=== PATIENT | male | born 1960 | race Two or more races ===

== ENCOUNTER 2016-11-11 17:15 | Emergency (ER) | payer SELFPAY ==
[2016-11-11 17:38] VITALS: O2SAT 100
[2016-11-11] MEDS ORDERED: Sodium Chloride 0.9% 1,000 ML IV STA ×2 (17:42→19:29)
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
[2016-11-11 18:26] LABS: BASO # 0.1 K/uL (0.0-0.2); BASO % 0.7 % (0.0-2.0); HEMATOCRIT 44.2 % (35.0-51.0); LYMPH % 4.9 % (20.0-40.0); MEAN CELL VOLUME 92.8 fl (80.0-94.0); MEAN CORPUSCULAR HEMOGLOBIN 30.2 pg (27.0-31.0); MEAN CORPUSCULAR HGB CONC 32.6 g/dL (33.0-37.0); MEAN PLATELET VOLUME 7.8 fl (7.2-11.7); MONO # 0.7 K/uL (0.0-0.8); MONO % 3.6 % (0.0-10.0); NEUT # 18.5 K/uL (1.8-7.0); NEUT % 90.8 % (50.0-75.0); NRBC % 0.1 % (0.0-0.0); PLATELET COUNT 389 K/uL (130-400); RED CELL DISTRIBUTION WIDTH 13.4 % (11.5-14.5); WHITE BLOOD COUNT 20.4 K/uL (4.8-10.8)
[2016-11-11 18:31] LABS: ALB/GLOB RATIO 1.6 (1.0-2.1); ALCOHOL SERUM < 10 mg/dl (0-10); ALKALINE PHOSPHATASE 175 U/L (38-126); ALT/SGPT 95 U/L (21-72); AST/SGOT 33 U/L (17-59); BILIRUBIN,TOTAL 0.7 mg/dl (0.2-1.3); BLOOD UREA NITROGEN 19 mg/dl (9-20); CALCIUM 10.4 mg/dL (8.4-10.2); CARBON DIOXIDE 21 mmol/L (22-30); CHLORIDE 108 mmol/L (98-107); GFR AFRICAN-AMERICAN > 60; GLUCOSE,RANDOM 163 mg/dL (75-110); SODIUM 146 mmol/l (132-148); TOTAL PROTEIN 8.7 G/DL (6.3-8.2)
--- NOTE | 2016-11-11 20:15 | ED PDOC ---
- Laboratory Results Result Diagrams: 11/11/16 18:00 11/11/16 18:00 - ECG O2 Sat by Pulse Oximetry: 100 (RA) Pulse Ox Interpretation: Normal Medical Decision Making Medical Decision Makin:00 Patient transferred over to provider from Dr. Hickman. Pending labs and reevaluation. 21:14 Patient ordered repeat CBC and BMP, but declines because his 12 year old dog was euthanized earlier today. Patient states that he needs to leave to make further arrangements. 21:30 Upon provider reevaluation patient's condition has improved, is medically stable , and requires no further treatment in the emergency department at this time. Patient will be discharged home with a prescription for Zofran ODT. Counseling was provided and all questions were answered regarding diagnosis and need for follow up with his primary medical doctor in 2 days. Patient is in agreement with provider's discharge plan and was prompted to return if their symptoms persist or worsen. Clinical Impression: Acute gastritis, dehydration Scribe Attestation: Documented by Chris Power, acting as a scribe for Oneal Hernandez MD. Provider Scribe Attestation: All medical record entries made by the Scribe were at my direction and personally dictated by me. I have reviewed the chart and agree that the record accurately reflects my personal performance of the history, physical exam, medical decision making, and the department course for this patient. I have also personally directed, reviewed, and agree with the discharge instructions and disposition. Disposition - Clinical Impression Clinical Impression: Vomiting, Dehydration - POA Present On Arrival: None - Disposition Disposition: Routine/Home Disposition Time: 21:30 Condition: IMPROVED Prescriptions: Ondansetron ODT [Zofran ODT] 4 mg PO Q6 PRN #16 odt PRN Reason: Nausea/Vomiting Forms: [employer] ([place])
[2016-11-11 21:41] VITALS: BP 125/80; PULSE 75; RESP 16; TEMP 98.1
[2016-11-11 21:53] LABS: NEUTROPHIL 92 % (42-75); TOTAL CELLS COUNTED 100
[2016-11-11 21:56] LABS: GIANT PLATELETS PRESENT; LARGE PLATELETS PRESENT
--- NOTE | 2016-11-12 13:27 | CARD ---
APPROVED REPORT EKG Measurement Heart [id number] <Conclusion> Normal sinus rhythm Normal ECG
== END 2016-11-11 21:42 | disposition home or self-care (01) ==
LOC: H.ER 17:27
DX: K29.00 Acute gastritis without bleeding (principal); E86.0 Dehydration; R11.10 Vomiting, unspecified
CPT/HCPCS: 80053; 84484; 85025; 93005; 96361; 96372; 96374; 96375; 96376; 99283; G0480; J2405; J2550; J7040